=== PATIENT | female | born 1960 | race Caucasian/White ===

== ENCOUNTER 2020-05-03 00:21 | Outpatient (CLI) | payer BC, SELFPAY ==
[2020-05-03 18:12] LABS: SARS-CoV-2 RNA PCR Negative
== END 2020-05-03 00:22 | disposition home or self-care (01) ==
LOC: ANHCOVIDDT 00:21
PROVIDERS: PCP Family Medicine Adolescent Medicine; Visit Provider Internal Medicine Gastroenterology
DX: Z20.828 Contact with and (suspected) exposure to other viral communicable diseases (principal); Z01.812 Encounter for preprocedural laboratory examination
CPT/HCPCS: 87635; C9803; U0003

== ENCOUNTER 2020-05-05 00:46 | Day surgery (SDC) | payer BC, SELFPAY ==
[2020-05-02 10:44] VITALS: BMI 34.2
[2020-05-05 06:19] VITALS: BMI 34.1
[2020-05-05 06:20] VITALS: BP 133/83; PULSE 84; RESP 16; TEMP 36.4; O2SAT 100
[2020-05-05] MEDS: LACTATED RINGERS 1,000 ML 150 ML IV CONT (06:33)
--- NOTE | 2020-05-05 07:11 | P.PNAN_ITS ---
Anes - Initial Pre Proc Eval Procedure: Operation Date: 05/05/20 07:30 Proposed Procedures p Screening Colonoscopy - Paulino Seaman MD Date/Time: 05/05/20 07:11 Surgeon: Paulino Seaman MD Pre Op Diagnosis: Neoplasm Screening, Family Hx of Colon Cancer Patient Data Age: 59 Gender: F Height: 5 ft 2 in Weight: 84.6 kg Last Vital Signs Temp 97.5 F L 05/05/20 06:20 Pulse 84 05/05/20 06:20 Resp 16 05/05/20 06:20 BP 133/83 05/05/20 06:20 Pulse Ox 100 05/05/20 06:20 Allergies Allergy/AdvReac Type Severity Reaction Status Date / Time No Known Allergies Allergy Verified 05/05/20 06:18 Home Medications Medication Instructions Recorded Confirmed Type [place]-3 1 tab-cap PO DAILY 05/02/20 05/02/20 History losartan 25 mg PO DAILY 05/02/20 05/02/20 History Patient hx anesthesia problems: none Family hx anesthesia problems: none [facility] Past Medical History Medical History (Updated 05/05/20 @ 07:11 by Wally Gauthier MD) Hypertension Anes - Eval Final PreProcedure Day of Procedure 05/05/20 07:11 Patient weight: overweight Heart: regular rate and rhythm Lungs: clear to auscultation Airway: Mallampati scale class II Neurological: alert and oriented Last oral intake: >/= 8 hours ASA classification: II Emergent: no Anesthesia type and monitoring: general GIVS and standard monitoring Informed Consent: The patient's anesthetic plan and its attendant risks and benefits were discussed with the patient/family/POA. Questions were solicited and answers provided to the satisfaction of the patient/family/POA.
[2020-05-05 08:06] VITALS: BP 92/60; PULSE 62; RESP 18; O2SAT 98
--- NOTE | 2020-05-05 08:08 | P.CONGI_ITS ---
Assessment and Plan Assessment and plan (1) Family hx of colon cancer: Code(s): Z80.0 - Family history of malignant neoplasm of digestive organs Status: Acute Assessment and Plan: both mother and father have had colon cancer. Plan is for surveillance colonoscopy at 5 year intervals. Further recommendations will be given after endoscopy. GI Consult Note Consult date/time: 05/05/20 08:08 HPI: Kiera Torres is a 59 year old female Seen in evaluation at the request of Dr. Maurisio Castro. Patient presents for neoplasia screening. Her current weight appetite bowel movements are normal. She denies abdominal pain. She has no bleeding. Her appetite is normal. Weight has remained stable. Family history is significant both mother and father have had colon cancer. Past medical History is significant for hypertension. Review of Systems Review of Systems: All systems reviewed & are unremarkable except as noted in HPI and below PMFSH Past Medical History Medical History Hypertension Meds Home Medications and Allergies Home Medications Medication Instructions Recorded Confirmed Type [place]-3 1 tab-cap PO DAILY 05/02/20 05/02/20 History losartan 25 mg PO DAILY 05/02/20 05/02/20 History Allergies Allergy/AdvReac Type Severity Reaction Status Date / Time No Known Allergies Allergy Verified 05/05/20 06:18 Vital Signs Vital Signs - 24 hr 05/05/20 06:20 Temperature 36.4 C L Pulse Rate 84 Respiratory Rate 16 Blood Pressure 133/83 Pulse Oximetry 100 Exam Narrative: Exam Narrative: Physical exam reveals patient to be alert. Vital signs stable. HEENT exam unremarkable. Lungs are clear to auscultation and percussion. Heart is without murmur or extra sounds. Abdominal exam bowel sounds are present soft nontender with no organomegaly. Digital external rectal exam is normal.
[2020-05-05 08:16] VITALS: BP 105/62; PULSE 62; RESP 20; O2SAT 99
[2020-05-05 08:26] VITALS: BP 104/68; PULSE 65; RESP 22; O2SAT 100
== END 2020-05-05 08:55 | disposition home or self-care (01) ==
PROVIDERS: PCP Family Medicine Adolescent Medicine; Visit Provider Internal Medicine Gastroenterology
PROC: 0DJD8ZZ Inspection of Lower Intestinal Tract, Via Natural or Artificial Opening Endoscopic (ICD-10-PCS; CPT 45378; principal; 2020-05-05 07:30)
DX: Z12.11 Encounter for screening for malignant neoplasm of colon (principal); K57.30 Diverticulosis of large intestine without perforation or abscess without bleeding; K64.8 Other hemorrhoids; Z80.0 Family history of malignant neoplasm of digestive organs; I10 Essential (primary) hypertension
CPT/HCPCS: 45378; J2704; J7120

== ENCOUNTER 2020-05-30 07:21 | Outpatient (CLI) | payer BC, SELFPAY ==
--- NOTE | ~2020-05-30 | MM_ITS ---
EXAMINATION: MM screening [facility] w vipin HISTORY: Screening mammogram, family history of breast cancer in her mother and sister. TECHNIQUE: Craniocaudal and mediolateral oblique 3-D tomosynthesis images were obtained and synthetic 2-D images were generated. CAD analysis was submitted and interpreted. COMPARISON: 05/28/2019, 04/24/2018, 04/22/2017 BREAST PARENCHYMAL COMPOSITION: There are scattered areas of fibroglandular density. FINDINGS: There is no evidence of suspicious mass, calcification, or architectural distortion to sugg est malignancy in either breast. There has been no suspicious interval change. IMPRESSION: 1. No mammographic evidence of malignancy. 2. Recommend routine screening mammography in one year. BI-RADS Category 1: Negative Reviewed, dictated and finalized at location A.
--- NOTE | ~2020-05-30 | DEXA_ITS ---
BMD(1) Young-Adult(2) Region (g/cm2) T-score WHO Classification L1 1.390 2.0 Normal L2 1.282 0.6 Normal L3 1.473 2.0 Normal L4 1.469 1.9 Normal L1-L4 1.408 1.7 Normal Trend: L1-L4 Change vs Change vs Measured Age BMD(1) Baseline Previous Date (years) (g/cm2) (%) (%) 05/30/2020 [age] 1.408 baseline - 1 - Statistically 68% of repeat scans fall within 1SD (+- 0.010 g/cm2 for AP Spine L1-L4) 2 - [place] (Combined NHANES (ages 20-30) / [employer]Friends (ages 20-40)) AP Spine Reference Population (v112) 11 - World Health Organization - Definition of Osteoporosis and Osteopenia for Women: Normal = T-score at or above -1.0 SD; Osteopenia = T-score between -1.0 and -2.5 SD; Osteoporosis = T-score at or below -2.5 SD; (WHO definitions only apply when a young healthy Women reference database is used to determine T-scores.) Printed: 05/30/2020 8:23:26 AM (13.60)76:3.00:50.00:12.0 0.00:10.20 0.60x1.05 23.4:%Fat=44.3% 0.00:0.00 0.00:0.00 Verify bone is centered and there is sufficient tissue next to bone. Filename: [id number].dfx Scan Mode: Standard;OneScan 37.0 [employer] [id number] BMD(1) Young-Adult(2,7) Region (g/cm2) T-score WHO Classification Neck Left 0.971 -0.5 Normal Right 0.910 -0.9 Normal Mean 0.940 -0.7 Normal Difference 0.060 0.4 - Total Left 1.056 0.4 Normal Right 1.001 -0.1 Normal Mean 1.028 0.2 Normal Difference 0.055 0.4 - Hip Schertz Length Comparison (mm) KEILA chart results unavailable Trend: Total Mean Change vs Change vs Measured Age BMD(1) Baseline Previous Date (years) (g/cm2) (%) (%) 05/30/2020 60.7 1.028 baseline - 1 - Statistically 68% of repeat scans fall within 1SD (+- 0.010 g/cm2 for DualFemur Total) 2 - [place] (Combined NHANES (ages 20-30) / [employer]Friends (ages 20-40)) Femur Reference Population (v112) 7 - DualFemur Total T-score difference is 0.4. Asymmetry is None. 11 - World Health Organization - Definition of Osteoporosis and Osteopenia for Women: Normal = T-score at or above -1.0 SD; Osteopenia = T-score between -1.0 and -2.5 SD; Osteoporosis = T-score at or below -2.5 SD; (WHO definitions only apply when a young healthy Women reference database is used to determine T-scores.) Printed: 05/30/2020 8:23:26 AM (13.60); Filename: [email or web address].dfx; Right Femur; 20.4:%Fat=22.9%; Neck Angle (deg)= 66; Scan Mode: Standard 37.0 uGy; Left Femur; 20.4:%Fat=26.4%; Neck Angle (deg)= 62; Scan Mode: Standard 37.0 uGy [employer] [id number] Dear Mariana Fernandez, Your patient Kiera Torres completed a BMD test on 05/30/2020 using the [employer] DXA System (analysis version: 13.60) manufactured by [employer]. The following summarizes the results of our evaluation. PATIENT BIOGRAPHICAL: Name: Kiera Torres Date: 1960 Height: 62.0 in. Gender: Female Exam Date: 05/30/2020 Weight: 187.0 lbs. Indications: Caffeinated drinks, Fractures: Treatments: Fish Oil, Tamoxofin ASSESSMENT: The BMD measured at Femur Neck Right is 0.910 g/cm2 with a T-score of -0.9. Bone density is up to 10% below young normal. This patient is considered normal according to World Health Organization (WHO) criteria. Fracture risk is low. Site R
[2020-05-30 07:55] LABS: Hemoglobin A1C 5.8 % (<5.7)
[2020-05-30 08:52] LABS: Alanine Aminotransferase 22 U/L (14-59); Albumin Level 3.7 g/dL (3.4-5.0); Alkaline Phosphatase 45 U/L (46-116); Aspartate Amino Transferase 15 U/L (15-37); Bilirubin,Total 0.6 mg/dL (0.00-1.00); Blood Urea Nitrogen 17 mg/dL (7-18); Calcium 9.2 mg/dL (8.5-10.1); Carbon Dioxide 30 mmol/L (21-32); Chloride 103 mmol/L (98-108); Cholesterol 243 mg/dL (0-200); Estimated Glomerular Filt Rate > 60; Glucose 96 mg/dL (70-99); HDL Direct 51 mg/dL (40-60); LDL Cholesterol Calculated 164 mg/dL (<130); Osmolality Calculated 287 mOsm/kg (285-295); Sodium 138 mmol/L (136-145); Total Protein 7.3 g/dL (6.4-8.2); Triglycerides 141 mg/dL (0-150)
== END 2020-05-30 07:22 | disposition home or self-care (01) ==
LOC: CHSIMG 07:23
PROVIDERS: PCP Family Medicine Adolescent Medicine; Visit Provider Physician Assistant
DX: Z12.31 Encounter for screening mammogram for malignant neoplasm of breast (principal); Z78.0 Asymptomatic menopausal state; Z13.820 Encounter for screening for osteoporosis; E78.00 Pure hypercholesterolemia, unspecified; R73.01 Impaired fasting glucose
CPT/HCPCS: 36415; 77063; 77067; 77080; 80053; 80061; 83036

== ENCOUNTER 2021-06-12 06:58 | Outpatient (CLI) | payer BC, SELFPAY ==
--- NOTE | ~2021-06-12 | MM_ITS ---
EXAMINATION: MM screening [facility] BI w vipin HISTORY: Screening TECHNIQUE: Craniocaudal and mediolateral oblique 3-D tomosynthesis images were obtained and synthetic 2-D images were generated. CAD analysis was submitted and interpreted. COMPARISON: No prior mammogram is available for comparison at this institution. BREAST PARENCHYMAL COMPOSITION: There are scattered areas of fibroglandular density. FINDINGS: There is no evidence of suspicious mass, calcification, or architectural distortion to sugg est malignancy in either breast. There has been no suspicious interval change. IMPRESSION: 1. No mammographic evidence of malignancy. 2. Recommend routine screening mammography in one year. BI-RADS Category 1: Negative Reviewed, dictated and finalized at location A.
== END 2021-06-12 06:59 | disposition home or self-care (01) ==
LOC: CHSIMG 07:00
PROVIDERS: PCP Family Medicine Adolescent Medicine; Visit Provider Family Medicine Adolescent Medicine
DX: Z12.31 Encounter for screening mammogram for malignant neoplasm of breast (principal)
CPT/HCPCS: 77063; 77067

== ENCOUNTER 2022-02-09 07:21 | Outpatient (CLI) | payer BC, SELFPAY ==
[2022-02-09 07:52] LABS: Hemoglobin A1C 6.1 % (<5.7)
[2022-02-09 08:18] LABS: Cholesterol 219 mg/dL (0-200); HDL Direct 50 mg/dL (40-60); LDL Cholesterol Calculated 143 mg/dL (<130); Triglycerides 132 mg/dL (0-150)
== END 2022-02-09 07:22 | disposition home or self-care (01) ==
LOC: CHSLAB 07:23
PROVIDERS: PCP Family Medicine Adolescent Medicine; Visit Provider Family Medicine Adolescent Medicine
DX: R73.01 Impaired fasting glucose (principal); E78.00 Pure hypercholesterolemia, unspecified
CPT/HCPCS: 36415; 80061; 83036

== ENCOUNTER 2022-07-03 07:13 | Outpatient (CLI) | payer BC, SELFPAY ==
--- NOTE | ~2022-07-03 | MM_ITS ---
EXAMINATION: MM screening [facility] BI w vipin HISTORY: Screening mammogram TECHNIQUE: Craniocaudal and mediolateral oblique 3-D tomosynthesis images were obtained and synthetic 2-D images were generated. CAD analysis was submitted and interpreted. COMPARISON: 06/12/2021, 05/30/2020, 05/28/2019, additional screening mammograms dating back to 02/27/2004 BREAST PARENCHYMAL COMPOSITION: There are scattered areas of fibroglandular density. FINDINGS: There is focal asymmetry anteriorly in the lower inner quadrant of the right breast. Diagno stic right mammogram and right breast ultrasound examination are recommended. No suspicious mass, architectural distortion or significant new or developing density or malignant ca lcification is noted elsewhere in either breast. IMPRESSION: 1. Focal asymmetry, anterior lower inner right breast 2. Diagnostic right mammogram and right breast ultrasound examination are recommended BI-RADS Category 0: Incomplete: Needs additional imaging evaluation. Reviewed, dictated and finalized at location A. IMPRESSION: 1. Focal asymmetry, anterior lower inner right breast 2. Diagnostic right mammogram and right breast ultrasound examination are recom mended BI-RADS Category 0: Incomplete: Needs additional imaging evaluation.
== END 2022-07-03 07:14 | disposition home or self-care (01) ==
LOC: CHSIMG 07:15
PROVIDERS: PCP Family Medicine Adolescent Medicine; Visit Provider Family Medicine Adolescent Medicine
DX: Z12.31 Encounter for screening mammogram for malignant neoplasm of breast (principal)
CPT/HCPCS: 77063; 77067

== ENCOUNTER 2022-07-09 09:07 | Outpatient (CLI) | payer BC, SELFPAY ==
--- NOTE | ~2022-07-09 | MMUS_ITS ---
CORRECTED REPORT order description change 07/10/22 [facility] [place] EXAMINATION: MM DIAGNOSTIC LEIGH ANN RT W JAMES, US breast RT limited HISTORY: Follow-up right breast asymmetry TECHNIQUE: Additional 3-D tomosynthesis images of the right breast were performed and synthetic 2-D images were generated. CAD analysis was submitted and interpreted. High resolution Limited right breast ultrasound was performed. COMPARISON: 07/03/2022 BREAST PARENCHYMAL COMPOSITION: Breast composed of scattered areas of fibroglandular density FINDINGS: MAMMOGRAPHIC FINDINGS: There are no suspicious masses, calcifications or architectural distortion in the right breast to suggest malignancy. The focal asymmetry seen on prior mammogram likely corresponds to the nipple which is not in profile. ULTRASOUND: Limited right breast ultrasound: Normal heterogeneous echotexture without focal solid or cystic mass. There are mildly prominent subareolar ducts. IMPRESSION: 1. No evidence for malignancy in the right breast. 2. Routine yearly screening mammogram and regular clinical breast examination are recommended. BI-RADS Category 1: Negative Reviewed, dictated and finalized at location A. MTDD IMPRESSION: 1. No evidence for malignancy in the right breast. 2. Routine yearly screening mammogram and regular clinical breast examination a re recommended. BI-RADS Category 1: Negative
[2022-07-09 09:32] LABS: Hemoglobin A1C 6.1 % (<5.7)
[2022-07-09 09:36] LABS: Alanine Aminotransferase 32 U/L (14-59); Albumin Level 3.8 g/dL (3.4-5.0); Alkaline Phosphatase 52 U/L (46-116); Anion Gap 7 mmol/L (8-16); Aspartate Amino Transferase 16 U/L (15-37); Bilirubin,Total 0.8 mg/dL (0.00-1.00); Blood Urea Nitrogen 14 mg/dL (7-18); Calcium 9.2 mg/dL (8.5-10.1); Carbon Dioxide 28 mmol/L (21-32); Chloride 100 mmol/L (98-108); Cholesterol 157 mg/dL (0-200); Estimated Glomerular Filt Rate > 60; Glucose 114 mg/dL (70-99); HDL Direct 53 mg/dL (40-60); LDL Cholesterol Calculated 81 mg/dL (<130); Osmolality Calculated 281 mOsm/kg (285-295); Potassium 3.7 mmol/L (3.5-5.1); Sodium 135 mmol/L (136-145); Total Protein 7.5 g/dL (6.4-8.2); Triglycerides 116 mg/dL (0-150)
== END 2022-07-09 09:08 | disposition home or self-care (01) ==
LOC: CHSIMG 09:09
PROVIDERS: PCP Family Medicine Adolescent Medicine; Visit Provider Family Medicine Adolescent Medicine
DX: R92.8 Other abnormal and inconclusive findings on diagnostic imaging of breast (principal); I10 Essential (primary) hypertension; E78.00 Pure hypercholesterolemia, unspecified; R73.01 Impaired fasting glucose
CPT/HCPCS: 36415; 76641; 76642; 77061; 77065; 80053; 80061; 83036; G0279

== ENCOUNTER 2023-07-10 08:11 | Outpatient (CLI) | payer OTHER, SELFPAY ==
--- NOTE | ~2023-07-10 | MM_ITS ---
EXAMINATION: MM screening [facility] BI w vipin HISTORY: Screening mammogram TECHNIQUE: Craniocaudal and mediolateral oblique 3-D tomosynthesis images were obtained and synthetic 2-D images were generated. CAD analysis was submitted and interpreted. COMPARISON: 07/09/2022 diagnostic right mammogram and limited right breast ultrasound examination 07/03/2022, 06/12/2021, 05/30/2020 bilateral screening mammogram examinations BREAST PARENCHYMAL COMPOSITION: FINDINGS: There is no evidence of suspicious mass, calcification, or architectural distortion to sugg est malignancy in either breast. There has been no suspicious interval change. IMPRESSION: 1. No mammographic evidence of malignancy. 2. Recommend routine screening mammography in one year. BI-RADS Category 1: Negative Reviewed, dictated and finalized at location A.
== END 2023-07-10 08:12 | disposition home or self-care (01) ==
LOC: CHSIMG 08:14
PROVIDERS: PCP Family Medicine Adolescent Medicine; Visit Provider Family Medicine Adolescent Medicine
DX: Z12.31 Encounter for screening mammogram for malignant neoplasm of breast (principal)
CPT/HCPCS: 77063; 77067

== ENCOUNTER 2024-02-10 07:27 | Outpatient (CLI) | payer OTHER, SELFPAY ==
--- NOTE | ~2024-02-10 | DEXA_ITS ---
Bone Density Report Name: WILLY WALDEN Age: 63 Sex: Female Ethnicity: Date of : 1960 Indication: postmenopausal; screening for osteoporosis; height loss; Referring Provider: WOODY KINGSTON Study: Bone densitometry was performed. Exam Date: February 10, 2024 Accession number: [id number] Bone Density: Region BMD T-score Z-score Classification AP Spine(L1-L4) 1.114 0.6 2.3 Normal Femoral Neck (Left) 0.759 -0.8 0.7 Normal Total Hip (Left) 0.972 0.2 1.4 Normal Femoral Neck (Right) 0.674 -1.6 -0.1 Osteopenia Total Hip (Right) 0.934 -0.1 1.1 Normal Femoral Neck Mean 0.717 -1.2 0.3 Osteopenia Total Hip Mean 0.953 0.1 1.3 Normal World Health Organization criteria for BMD impression classify patients as: Normal (T-score at or above -1.0), Osteopenia (T-score between -1.0 and -2.5), or Osteoporosis (T-score at or below -2.5). 10-year Fracture Risk(1): Major Osteoporotic Fracture 4.3% Hip Fracture 0.4% Reported Risk Factors: [place] (), Neck BMD=0.674, BMI=39.1 (1) FRAX(R) Version 3.08. Fracture probability calculated for an untreated patient. Fracture probability may be lower if the patient has received treatment. Clinical Information Provided by Patient: Patient maximum height was 62 Menopause Age: 49 No regular weight bearing exercise Drinks caffeinated beverages Onset of menses at age 12 Number of children 2 Impression: The patient has low bone mass, based on the Right Femoral Neck T-score. Discussion: BONE DENSITY IS LOW AT ONE OR MORE SKELETAL SITES. This patient's lowest T-score is low at one or more skeletal sites. It meets the World Health Organization's (WHO) criteria for ?low bone mass? (T-score between -1.0 and -2.5). The patient's 10-year risk of fracture as calculated by FRAX is less than the threshold where pharmacological therapy is recommended by the National Osteoporosis Foundation (NOF). However, all treatment decisions require clinical judgment and consideration of individual patient factors, including patient preferences, comorbidities, previous drug use, risk factors not captured in the FRAX model (e.g., frailty, falls, vitamin D deficiency, increased bone turnover, interval significant decline in bone density) and possible under or overestimation of fracture risk by FRAX. The patient should follow a healthful lifestyle (good nutrition with adequate calcium and vitamin D, and appropriate weight-bearing exercise). Follow-Up: Consider repeating this study in 2 to 3 years to reassess this patient's status, or sooner if there is some new clinical indication. Reported by: Dr. Julio César Garcia on 02/10/2024 8:09:00 AM. Reviewed, dictated and finalized at location A. M
[2024-02-10 07:56] LABS: Hemoglobin A1C 5.7 % (<5.7)
[2024-02-10 08:49] LABS: Alanine Aminotransferase 44 U/L (14-59); Albumin Level 3.8 g/dL (3.4-5.0); Alkaline Phosphatase 41 U/L (46-116); Anion Gap 14 mmol/L (8-16); Aspartate Amino Transferase 18 U/L (15-37); Bilirubin,Total 0.8 mg/dL (0.00-1.00); Blood Urea Nitrogen 19 mg/dL (7-18); Calcium 9.3 mg/dL (8.5-10.1); Carbon Dioxide 25 mmol/L (21-32); Chloride 102 mmol/L (98-108); Cholesterol 158 mg/dL (0-200); Estimated Glomerular Filt Rate > 60; Glucose 108 mg/dL (70-99); HDL Direct 62 mg/dL (40-60); LDL Cholesterol Calculated 76 mg/dL (<130); Osmolality Calculated 295 mOsm/kg (285-295); Potassium 3.9 mmol/L (3.5-5.1); Sodium 141 mmol/L (136-145); Total Protein 7.2 g/dL (6.4-8.2); Triglycerides 100 mg/dL (0-150)
== END 2024-02-10 07:28 | disposition home or self-care (01) ==
LOC: CHSIMG 07:28
PROVIDERS: PCP Family Medicine Adolescent Medicine; Visit Provider Family Medicine Adolescent Medicine
DX: E78.00 Pure hypercholesterolemia, unspecified (principal); I10 Essential (primary) hypertension; R73.01 Impaired fasting glucose; Z78.0 Asymptomatic menopausal state; M85.88 Other specified disorders of bone density and structure, other site
CPT/HCPCS: 36415; 77080; 80053; 80061; 83036

== ENCOUNTER 2024-07-13 07:14 | Outpatient (CLI) | payer OTHER, SELFPAY ==
--- NOTE | ~2024-07-13 | MM_ITS ---
EXAMINATION: MM screening [facility] BI w vipin HISTORY: Screening TECHNIQUE: Craniocaudal and mediolateral oblique 3-D tomosynthesis images were obtained and synthetic 2-D images were generated. CAD analysis was submitted and interpreted. COMPARISON: Comparison to multiple prior studies sequentially, with oldest reviewed study dated 05/28. BREAST PARENCHYMAL COMPOSITION: Not dense: There are scattered areas of fibroglandular density. FINDINGS: There is no evidence of suspicious mass, calcification, or architectural distortion to sugg est malignancy in either breast. There has been no suspicious interval change. IMPRESSION: 1. No mammographic evidence of malignancy. 2. Recommend routine screening mammography in one year. BI-RADS Category 1: Negative Reviewed, dictated and finalized at location B.
== END 2024-07-13 07:15 | disposition home or self-care (01) ==
LOC: CHSIMG 07:16
PROVIDERS: PCP Family Medicine Adolescent Medicine; Visit Provider Family Medicine Adolescent Medicine
DX: Z12.31 Encounter for screening mammogram for malignant neoplasm of breast (principal)
CPT/HCPCS: 77063; 77067

== ENCOUNTER 2025-08-03 07:53 | Outpatient (CLI) | payer MEDICARE, OTHER, SELFPAY ==
--- NOTE | ~2025-08-03 | MM_ITS ---
EXAMINATION: MM screening [facility] BI w vipin HISTORY: Screening TECHNIQUE: Craniocaudal and mediolateral oblique 3-D tomosynthesis images were obtained and synthetic 2-D images were generated. CAD analysis was submitted and interpreted. COMPARISON: 07/10/2023 BREAST PARENCHYMAL COMPOSITION: There are scattered areas of fibroglandular density. FINDINGS: There is no evidence of suspicious mass, calcification, or architectural distortion to suggest malignancy. There has been no suspicious interval change. IMPRESSION: 1. No mammographic evidence of malignancy. Recommend routine screening mammography in one year. BI-RADS Category 2: Benign finding(s) Reviewed, dictated and finalized at location Q. IMPRESSION: 1. No mammographic evidence of malignancy. Recommend routine screening mammogra phy in one year. BI-RADS Category 2: Benign finding(s)
== END 2025-08-03 07:54 | disposition home or self-care (01) ==
LOC: CHSIMG 07:56
PROVIDERS: PCP Family Medicine Adolescent Medicine; Visit Provider Family Medicine Adolescent Medicine
DX: Z12.31 Encounter for screening mammogram for malignant neoplasm of breast (principal)
CPT/HCPCS: 77063; 77067

== ENCOUNTER 2025-09-01 07:28 | Outpatient (CLI) | payer MEDICARE, OTHER, SELFPAY ==
[2025-09-01 07:59] LABS: Hemoglobin A1C 6.1 % (<5.7)
[2025-09-01 08:20] LABS: Alanine Aminotransferase 50 U/L (6-35); Albumin Level 4.4 g/dL (3.5-5.1); Alkaline Phosphatase 47 U/L (38-126); Anion Gap 9 mmol/L (4-12); Aspartate Amino Transferase 39 U/L (14-36); Bilirubin,Total 1.2 mg/dL (0.2-1.3); Blood Urea Nitrogen 18 mg/dL (7-17); Calcium 10.3 mg/dL (8.4-10.2); Carbon Dioxide 27 mmol/L (22-30); Chloride 105 mmol/L (98-107); Cholesterol 161 mg/dL (0-200); Estimated Glomerular Filt Rate > 60; Glucose 107 mg/dL (65-110); HDL Direct 57 mg/dL; Osmolality Calculated 293 mOsm/kg (285-295); Potassium 4.3 mmol/L (3.4-5.0); Sodium 141 mmol/L (137-145); Total Protein 8.3 g/dL (6.3-8.2); Triglycerides 151 mg/dL (<150)
== END 2025-09-01 07:29 | disposition home or self-care (01) ==
PROVIDERS: PCP Family Medicine Adolescent Medicine; Visit Provider Family Medicine Adolescent Medicine
DX: I10 Essential (primary) hypertension (principal); E78.00 Pure hypercholesterolemia, unspecified; R73.01 Impaired fasting glucose
CPT/HCPCS: 36415; 80053; 80061; 83036